=== PATIENT | female | born 1960 | race Caucasian/White ===

== ENCOUNTER 2019-03-08 21:35 | Emergency (ER) | payer MEDICARE, MEDICAID ==
[~2019-03-08] VITALS: Ht 170.2 cm; Wt 86.2 kg
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
--- NOTE | 2019-03-08 22:14 | NUR ---
NOW PT C/O L WRIST PAIN
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
--- NOTE | 2019-03-08 23:39 | NUR ---
PT AMBULATED TO THE BATHROOM WITH ASSISTANCE. PT REQUESTED JELLO, BUT WAS TOLD TO WAIT FOR THE CT/XRAY RESULTS, PER DR PAINTING.
--- NOTE | 2019-03-09 00:18 | NUR ---
C-COLLAR REMOVED PER DR PAINTING. DR PAINTING OK'D PT TO EAT. PT REC'D JELLO AND PUDDING.
[2019-03-09] MEDS ORDERED: KETOROLAC TROMETHAMINE INJ 60 MG/2 ML VIAL IM ONE ×2 (00:34→01:00)
--- NOTE | 2019-03-09 00:46 | NUR ---
Patient discharged to home in stable condition. Written and verbal after care instructions given. Patient verbalizes understanding of instruction. ambulatory with a steady gait noted. pt aaox4 no acute distress noted, resp even and unlabored.
[2019-03-09 00:55] VITALS: BP 127/63
== END 2019-03-09 01:21 | disposition home or self-care (01) ==
LOC: ER 21:38
DX: M79.10 Myalgia, unspecified site (principal); R51 Headache; R68.84 Jaw pain; M54.2 Cervicalgia; M25.511 Pain in right shoulder; M25.522 Pain in left elbow; M25.532 Pain in left wrist; M25.531 Pain in right wrist; M25.562 Pain in left knee; M25.561 Pain in right knee; M25.572 Pain in left ankle and joints of left foot; M25.571 Pain in right ankle and joints of right foot; E03.9 Hypothyroidism, unspecified; Z90.89 Acquired absence of other organs; V49.49XA Driver injured in collision with other motor vehicles in traffic accident, initial encounter; Y93.89 Activity, other specified; Y92.413 State road as the place of occurrence of the external cause; Y99.8 Other external cause status
CPT/HCPCS: 70450; 70486; 72100; 72125; 73030; 73070; 73100 ×2; 73560 ×2; 73600 ×2; 96372; 99284; J1885

== ENCOUNTER 2019-03-09 19:36 | Emergency (ER) | payer MEDICARE, MEDICAID ==
[~2019-03-09] VITALS: Ht 167.6 cm; Wt 81.6 kg
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
--- NOTE | 2019-03-09 20:11 | NUR ---
PT TRANSPORTED TO RADIOLOGY FOR CT HEAD.
--- NOTE | 2019-03-09 20:17 | NUR ---
PT BACK FROM RADIOLOGY PENDING CT HEAD RESULT.
[2019-03-09] MEDS ORDERED: KETOROLAC TROMETHAMINE INJ 60 MG/2 ML VIAL IM ONE ×2 (20:23→20:30)
[2019-03-09] MEDS ORDERED: HYDROCODONE/APAP 5/325MG 1 EACH TABLET ONE (20:24)
--- NOTE | 2019-03-09 20:29 | NUR ---
PT MEDICATED ORDERED.
[2019-03-09] MEDS ORDERED: HYDROCODONE/APAP 5/325MG 1 EACH TABLET PO ONE (20:30)
--- NOTE | 2019-03-09 21:12 | NUR ---
Patient discharged to home in stable condition. Written and verbal after care instructions given. Patient verbalizes understanding of instruction. ambulatory with a steady gait noted. advice pt not to drive or operate any machinery due to pt was given narcotic medicine.Patient verbalizes understanding
[2019-03-09 21:14] VITALS: BP 133/64
== END 2019-03-09 21:15 | disposition home or self-care (01) ==
LOC: ER 19:40
DX: S06.0X0A Concussion without loss of consciousness, initial encounter (principal); R51 Headache; E03.9 Hypothyroidism, unspecified; Z90.89 Acquired absence of other organs; Z60.2 Problems related to living alone; V49.49XA Driver injured in collision with other motor vehicles in traffic accident, initial encounter; Y93.89 Activity, other specified; Y92.488 Other paved roadways as the place of occurrence of the external cause; Y99.8 Other external cause status
CPT/HCPCS: 70450; 96372; 99284; J1885

== ENCOUNTER 2019-03-26 15:32 | Emergency (ER) | payer MEDICAID, MEDICARE ==
[~2019-03-26] VITALS: Ht 167.6 cm; Wt 81.6 kg
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
[2019-03-26] MEDS ORDERED: KETOROLAC TROMETHAMINE INJ 30 MG/ML VIAL ONE (17:14)
[2019-03-26] MEDS ORDERED: diphenhydrAMINE HCL 50 MG/ML VIAL ONE (17:14)
[2019-03-26] MEDS ORDERED: METOCLOPRAMIDE HCL 10 MG/2 ML VIAL ONE (17:14)
[2019-03-26 17:22] LABS: BASOPHILS % (AUTO) 0.4 % (0.0-2.0); EOSINOPHILS % (AUTO) 1.2 % (0.0-6.0); HEMATOCRIT 41 % (33-45); HEMOGLOBIN 14.1 g/dL (11.5-14.8); LYMPHOCYTES # (AUTO) 0.9 /CMM (0.8-4.8); LYMPHOCYTES % (AUTO) 11.3 % (20.0-44.0); MEAN CORPUSCULAR HGB CONC 34 g/dl (31.0-36.0); MEAN CORPUSCULAR VOLUME 90 fL (82-100); MONOCYTES # (AUTO) 0.6 /CMM (0.1-1.30); MONOCYTES % (AUTO) 6.8 % (2.0-12.0); NEUTROPHILS # (AUTO) 6.6 /CMM (1.8-8.9); NEUTROPHILS % (AUTO) 80.3 % (43.0-81.0); PLATELET COUNT (AUTO) 216 /CMM (150-450); RED BLOOD CELL COUNT(AUTO) 4.58 MIL/uL (4.0-5.2); WHITE BLOOD COUNT (AUTO) 8.2 K/uL (4.3-11.0)
[2019-03-26 17:30] LABS: CALCIUM, SERUM 8.6 mg/dL (8.5-10.1); CREATININE 0.9 mg/dL (0.6-1.3); POTASSIUM 3.9 mmol/L (3.5-5.1)
[2019-03-26] MEDS ORDERED: METOCLOPRAMIDE HCL 10 MG/2 ML VIAL IV ONE (17:30)
[2019-03-26] MEDS ORDERED: KETOROLAC TROMETHAMINE INJ 30 MG/ML VIAL IV ONE (17:30)
[2019-03-26] MEDS ORDERED: diphenhydrAMINE HCL 50 MG/ML VIAL IV ONE (17:30)
[2019-03-26] MEDS ORDERED: IV NS 0.9% 1,000 ML BAG IV ONE (17:30)
--- NOTE | 2019-03-26 18:25 | NUR ---
IV removed. Catheter intact and site benign. Pressure and 4x4 applied to site. No bleeding noted. Patient discharged to home in stable condition. Written and verbal after care instructions given. Patient verbalizes understanding of instruction.
[2019-03-26 18:31] VITALS: BP 125/65
== END 2019-03-26 18:25 | disposition home or self-care (01) ==
LOC: ER 15:37
DX: F07.81 Postconcussional syndrome (principal); R42 Dizziness and giddiness; E03.9 Hypothyroidism, unspecified; Z90.89 Acquired absence of other organs; Z60.2 Problems related to living alone
CPT/HCPCS: 36415; 80048; 85025; 85730; 96361; 96374; 96375; 99283; J1200; J1885; J2765; J7030